=== PATIENT | female | born 1965 | race Caucasian/White ===

== ENCOUNTER 2017-01-17 16:33 | Emergency (ER) | payer BC, OTHER ==
[~2017-01-17] VITALS: Ht 154.9 cm; Wt 107.3 kg
[2017-01-17 16:42] VITALS: Ht 154.9 cm; Wt 107.3 kg
--- NOTE | 2017-01-17 16:55 | ERD ---
ER Documentation Chief Complaint Date/Time DATE: 01/17/17 TIME: 16:51 Chief Complaint CODE GREEN AND MECHANICAL FALL AT H[facility] HPI Patient is a 51-year-old female who complains of sudden onset, constant, moderate pain to her right buttock and posterior thigh after she slipped on a stool and had her leg slide out from under her. She denies falling to the ground and denies injury to head, neck, back, or other extremities. She denies numbness or weakness of the right lower extremity. ROS All systems reviewed and are negative except as per history of present illness. PMhx/Soc Past medical history: None Past surgical history: None Social history: Denies tobacco or alcohol Medical and Surgical Hx: pt denies Medical Hx, pt denies Surgical Hx Hx Alcohol Use: Yes Hx Substance Use: No Hx Tobacco Use: No Smoking Status: Never smoker FmHx Family History: No coronary disease, No diabetes Physical Exam Vitals Vital Signs Date Time Temp Pulse Resp B/P Pulse Ox O2 Delivery O2 Flow Rate FiO2 01/17/17 16:42 98.5 95 18 180/74 96 Physical Exam Const: Alert, no acute distress Head: Atraumatic Eyes: Normal Conjunctiva ENT: Normal External Ears, Nose and Mouth. Neck: Full range of motion..~ No meningismus.No midline tenderness Abd: Soft, non tender, non distended. Skin: No petechiae or rashes Back: No midline or flank tenderness Ext: No cyanosis, or edema. Muscle tenderness without deformity or hematoma to the posterior right thigh. No pain with ranging of hip. 2+ DP pulse. Ambulates with mild limp. Neur: Awake and alert, Cranial nerves II through XII intact bilaterally, strength and sensation full in 4 extremities. Psych: Normal Mood and Affect Procedures/MDM MDM patient is a 51-year-old female who presents with pain to her right hamstring after her leg slipped out from under her on a stool. She did not have a fall or direct trauma. She does not have any evidence of hematoma or complete muscle tear on exam. She is able to walk with slightly antalgic gait. She has normal neurovascular exam. The patient has an elevated blood pressure , but states that her blood pressure was checked yesterday and her PMDs office and was normal. I suspect that this is related to situational anxiety and pain. Advised her to follow-up with her PMD regarding her blood pressure, and advised her to apply ice and an Preet wrap to the affected area. I advised her on return precautions. I will provide crutches as needed. Departure Diagnosis: Primary Impression: Muscle strain Condition: Fair Patient Instructions: Muscle Strain, Extremity Additional Instructions: Apply ice for the first 2 days and heat after that. Weightbearing and ambulation as tolerated. Return to the ER for severe pain or other concerns. Follow-up with your PMD if not improving in 1 week. ELISE STOKES MD Jan 17, 2017 16:55
== END 2017-01-17 17:47 | disposition home or self-care (01) ==
LOC: E/R 16:33
DX: S39.012A Strain of muscle, fascia and tendon of lower back, initial encounter (principal); W01.0XXA Fall on same level from slipping, tripping and stumbling without subsequent striking against object, initial encounter; Y92.239 Unspecified place in hospital as the place of occurrence of the external cause
CPT/HCPCS: 99282